=== PATIENT | male | born 1950 | race Caucasian/White ===

== ENCOUNTER 2023-08-28 09:33 | Emergency (ER) | payer BC, SELFPAY ==
[2023-08-28 09:43] VITALS: BP 159/80
[2023-08-28 10:28] VITALS: BMI 30.6
--- NOTE | 2023-08-28 10:55 | ED.GENMED ---
History of Present Illness
General
Chief Complaint: DVT/Possible Blood Clot
Source: patient
Exam Limitations: none
Time Seen by Provider: 08/28/23 09:56
Nursing documentation reviewed up to this point in time: agreed with
Travel History
Have you had any contact with someone who has COVID-19?: No
Do you have any symptoms of coronavirus? Fever > 100 degrees, chills, cough, shortness of breath, sore throat, loss of taste or smell, muscle aches, or headache?: No
History of Present Illness
History of Present Illness:
73 yo male with no significant pmhx stepped down a step onto uneven pavement last night outside a restaurant and felt sudden 'bolt of lightening' pain in left calf. It is not painful at rest or with most movements but standing on flat feet and
flexing knees elicits the pain, there is mild swelling. Is able to ambulate comfortably. Went yo UC and sent here to r/o clot.
Past History
Past History
ED Past Medical History: None
ED Past Surgical History: None
Social History
Tobacco: Non-smoker
Alcohol: None
Personal:
Living: with family
Employment: Employed
Review of Systems
Review of Systems
Allergies reviewed?: Yes
All Other Systems: ROS reviewed and negative except as documented in HPI and ROS
Respiratory: Denies trouble breathing
Cardiac: Denies chest pain
Musculoskeletal: Reports other (Pain left calf, mild swelling)
Skin: Reports no symptoms
Neurological: Denies weakness or numbness
Phy Exam
Physical Exam
Physical Exam:
GENERAL: No acute distress. A&Ox3.
CONSTITUTIONAL: Afebrile.
RESPIRATORY: Regular respirations, nonlabored, lungs clear.
CARDIOVASCULAR: Regular rate and rhythm, no murmurs, no rubs.
GI: Soft, nontender
MUSCULOSKELETAL: L calf nontender, no redness or warmth, mild swelling compared to R calf. Distal n/v intact. Moves with ease. Well perfused.
SKIN: Warm, dry, pink
PSYCH: Normal mood and affect. Well kept, interactive and appropriate
NEUROLOGIC: Awake, alert and oriented. No focal neurological deficits
Course
Orders/Labs/Results
Orders:
Orders
08/28/23 09:57
US Periph Venous LOWER Ext LT Urgent
Comment:
Reason For Exam: Left calf pain after injury
Vital Signs
Initial and Last Documented VS:
Initial Vital Signs
Temp Pulse Resp BP Pulse Ox
98 F 52 16 159/80 98
08/28/23 09:43 08/28/23 09:43 08/28/23 09:43 08/28/23 09:43 08/28/23 09:43
Last Documented Vital Signs
Temp Pulse Resp BP Pulse Ox
98 F 55 18 155/80 98
08/28/23 09:43 08/28/23 12:18 08/28/23 12:18 08/28/23 12:18 08/28/23 12:18
MDM/Problems Addressed
Differential Diagnosis Includes:
Ruptured plantaris tendon, Muscle strain
MDM/Problems Addressed:
73 yo male with no significant pmhx stepped down a step onto uneven pavement last night outside a restaurant and felt sudden 'bolt of lightening' pain in left calf. It is not painful at rest or with most movements but standing on flat feet and
flexing knees elicits the pain, there is mild swelling. Is able to ambulate comfortably. Went yo UC and sent here to r/o clot.
Reviewed pictures of plantaris tendon rupture with pt.
12:05 PM
ultrasound negative for DVT
Pt ambulated out with normal gait at discharge
*Critical Care Note
Total Time (30-74mins, 75-104mins- exclusive of procedures): Not Applicable
ED Attending Note
-
Portions of this chart may have been created with voice recognition software.� Occasional wrong word or��sound alike� substitutions may have occurred due to the inherent limitations of voice recognition software.
Discharge Plan
Departure
Patient Disposition: Home (Routine Discharge)
Date of Disposition: 08/28/23
Time of Disposition: 12:05
Patient with high blood pressure during this ER visit?: No
Condition: Good
Discharge Problem:
Rupture of left plantaris tendon, Strain of left calf muscle
Instructions: Lower Extremity Muscle Strain (DC), Tendinopathy (DC), RICE Therapy
Referrals:
Zeke Joseph MD [Active] - As needed
Moses Felder MD [Family Provider] - As needed
Activity Restrictions/Additional Instructions:
As we discussed, you have either a calf muscle strain or rupture of the plantaris tendon, either way treatment basically the same.
RICE therapy next 2 days
See the orthopedic doctor if not a LOT BETTER in 2 weeks.
Avoid exercise that aggravates the pain, give it about 2 weeks rest then gradually do stretching and increasing activities
Interventions
Interventions:
*Risk Screen - Suicide Last Done: 08/28/23 09:43
*General Assessment Last Done: 08/28/23 09:43
*Neglect/Abuse Screening Last Done: 08/28/23 09:43
ED- Fall Risk Assessment Last Done: 08/28/23 10:28
*ED COVID-19 Vaccine History Last Done: 08/28/23 10:28
*Nursing Disposition Last Done: 08/28/23 12:19
ED- Cardiac Assessment Last Done: 08/28/23 10:28
ED- Pulmonary Assessment Last Done: 08/28/23 10:28
ED-Skin Assessment Last Done: 08/28/23 10:28
Discharge Date and Time
Discharge Date/Time: 08/28/23 12:19
Print Language: HUNGARIAN
[2023-08-28 12:18] VITALS: BP 155/80
== END 2023-08-28 12:19 | disposition home or self-care (01) ==
LOC: EMR 09:33
PROVIDERS: EMERGENCY PHYSICIAN Emergency Medicine; FAMILY PHYSICIAN Internal Medicine
DX: S86.112A Strain of other muscle(s) and tendon(s) of posterior muscle group at lower leg level, left leg, initial encounter (principal); X58.XXXA Exposure to other specified factors, initial encounter
CPT/HCPCS: 99284; 93971

== ENCOUNTER → 2024-11-15 14:12 | Outpatient (REF) | payer BC, SELFPAY | LOC: RCS 14:12 | PROVIDERS: ATTENDING PHYSICIAN Ophthalmology; FAMILY PHYSICIAN Internal Medicine | DX: Z01.810 Encounter for preprocedural cardiovascular examination (principal); H25.811 Combined forms of age-related cataract, right eye; H25.812 Combined forms of age-related cataract, left eye | CPT/HCPCS: 93005 ==